=== PATIENT | female | born 1995 | race Caucasian/White ===

== ENCOUNTER 2024-08-14 16:46 | Observation (INO) | payer MEDICAID, SELFPAY ==
[2024-08-14 16:47] VITALS: BP 109/72; PULSE 83; RESP 20; TEMP 36.8
[2024-08-14 16:55] VITALS: BMI 27.1
[2024-08-14 18:54] LABS: ROM Kit Lot # 58102387
[2024-08-14 18:55] LABS: ROM Swab Mixed By: JENKK; Swb Mxed in Solvent 1 min? Yes
[2024-08-14 19:00] LABS: Rupture of Fetal Membranes Negative (Negative)
[2024-08-14] MEDS: RINGERS LACTATED 1000 ML 1,000 ML 999 ML IV (19:30)
[2024-08-14 19:36] VITALS: BP 113/77; PULSE 72
[2024-08-14 20:12] VITALS: BP 117/77; PULSE 73
[2024-08-14 20:24] VITALS: PULSE 73
[2024-08-14] MEDS: TERBUTALINE SULF INJ 1 MG/ML VIAL 0.25 MG SC (20:24)
--- NOTE | 2024-08-14 20:31 | ESPR_ITS ---
Documentation for date of: 08/14/24 OB Labor Progress Note Pelvic Exam Amniotic membrane status: Intact Contractions Monitor mode: External Contraction frequency: 8-10 Contraction intensity: Mild Status status: Category l Assessment and Plan Comments: Triage Note Srinivas is a 28yo with SIUP at 37&2wk presenting to L&D for ctx. No lof, no vaginal bleeding. Normal movement. Current : This has been uncomplicated, she has had regular OB care with Dr. Magana. Plans to have repeat with Dr. Acevedo, but has not had a pre-op visit with him yet. Previous pregnancies: history of section x2 ROS negative other than what was described above. Vitals wnl, afebrile General: well developed, well nourished, no acute distress, conversant Cardiac: normal heart rate Lungs: breathing without distress Abdomen: soft, gravid, non-tender, no rebound or guarding Extremities: no pain with palpation of calves SCE: 1.5/50/high, unchanged after time interval on L&D. However, some wetness noted after first exam so amnisure was performed which resulted negative NST: Reactive, +accels, no decels, mod bruno Tradewinds: ctx q3-5min, spaced out with 1L IVF and terbutaline Assessment: Srinivas is a 28yo with SIUP at 37&2wk with no evidence of labor based on SCE unchanged over time. Amnisure negative. Vitals wnl, benign exam. Reassuring status. Plan: -Safe for discharge home at this time -Dr. Acevedo's office contact info was placed in the discharge summary and she was instructed to walk in with him on Thursday for pre-op visit -Discussed return precautions Lisette Mathis MD
== END 2024-08-14 22:05 | disposition home or self-care (01) ==
PROVIDERS: Admitting Provider Obstetrics & Gynecology; Visit Provider Obstetrics & Gynecology
DX: O47.1 False labor at or after 37 completed weeks of gestation (principal); Z3A.37 37 weeks gestation of pregnancy
CPT/HCPCS: 59025; 59899; 84112; 96372; J3105; J7120

== ENCOUNTER 2024-08-16 08:36 | Outpatient (AMB) | payer MEDICAID, SELFPAY ==
[2024-08-16 08:58] VITALS: BP 124/84; PULSE 92; RESP 17; TEMP 36.4; O2SAT 94; BMI 27.3
--- NOTE | 2024-08-16 08:58 | AMB.OBINITIA ---
Vital Signs 08/16/24 08:58 Height 1.63 m Height Method Measured Weight 72.631 kg Weight Measurement Method Standing Scale BMI 27.3 BP 124/84 Blood Pressure Source Automatic Cuff Blood Pressure Location Right Upper Arm Position Sitting Respiration 17 Pulse 92 Pulse Source Monitor Temp 97.6 F Temp Source Temporal Artery Scan Pulse Oximetry (%) 94 L Oxygen Delivery Method Room Air Allergies/Home Meds Allergies & Medications Allergies No Known Allergies Allergy (Verified 08/23/24 11:03) Medication Reconciliation ferrous sulfate 325 mg (65 mg iron) tablet 325 mg PO QDAY 08/14/24 [History Confirmed 08/23/24] Intake Visit Data Collection New Patient or Established: Established Patient (seen at [facility] within 3 years) Reason for Visit:: OBI Seen by Clinical Staff ONLY (RN/MA): No Big Data Admin Required: No Do You Feel Safe at Home: Yes Authorities Contacted: N/A PCP or OBGYN visit in last 3 months: Yes Date of Last PCP or OBGYN visit: 08/14/24 Hx Now: Yes Are you currently on any form of Control: No Pain Present Currently: No Pain Scale Used: Headley-Rea/Numerical Smoking Status Smoking Status: Never smoker Questionnaires Covid-19 Vaccine Questionnaire Has patient been vacinated for Covid-19 Have you been vacinated for Covid-19: Yes PHQ-9 PHQ-2 Over the last 2 weeks, how often have you been bothered by any of the following problems? 1. Little interest or pleasure in doing things: not at all 2. Feeling down, depressed, or hopeless: not at all Total score: 0 Social History Living Situation History Marital Status: Lives With: Spouse Housing: House Tobacco History Smoking Status: Never smoker Alcohol History Alcohol Intake: Never Domestic Abuse History Do You Feel Safe at Home: Yes History of Present Illness HPI Narrative The patient, a 28-year-old at 34 weeks and 4 days gestation, is transferring care from Dr. Magana. She has a history of two previous C-sections, including one delivery at 34 weeks in 2023 and a full-term delivery in 2018. Srinivas reports no current complaints or symptoms, though she mentions feeling a little mad and hot during the visit. She is a former smoker who quit upon learning of her . She denies any other significant medical or genetic history. Her first was performed at approximately 38 weeks due to distress, with the baby having two true knots in the umbilical cord and cord wrapped around the neck twice. Her second was an emergency procedure at 34 weeks when she presented with what she thought was dehydration but was found to be in active labor. The patient's due date has been adjusted based on ultrasound findings. Her current estimated due date is September 23, 2024, with a planned scheduled for September 16, 2024 at 39 weeks. Srinivas reports no history of high blood pressure or diabetes in her previous pregnancies. She mentions potential misinformation regarding fasting for her glucose tolerance test, as she had eaten at [facility] before the test, which may have affected her result of 145. The patient is taking vitamins. She is non-immune to Rubella, and her Varicella immunity status is unknown. OB Initial Visit OB Flowsheet OB Flowsheet Initial Weight: Not Recorded Date <del>?</del> EGA Weight BP Alb Glu CTX Pres Fundal ht FHR Mov Dilation Station Effacement Hx Notes Visit Note 08/23/24 <del>?</del> 35w 4d 73.482 kg 117/77 occasional cephalic 35 136 active No CTX/LOF/VB, reports good FM. Seen last Thursday for CTX, 1cm dilated, ROM not confirmed. Doing well today. FHR 136. GBS swab done. Weekly visits ongoing. C/S scheduled 09/16 at 12:30 PM; check-in 10 AM. Return if CTX or LOF. Menstrual History Menstrual reliability: definite Flow: normal Menstrual regularity: regular Monthly: Yes Age at menarche: 14 On control pills at conception: No OB History : 4 Para: 3 Hx # Pregnancies: 1 Hx Total # of Abortions (Spontaneous & Elective): 1 # of Living Children: 2 Delivery History 1st : Child's name: SEBASTIÁN BARNHART date: 02/10/18 sex: male Delivery type: weight (lbs): 3175.147 g History of depression before or after : No 2nd : Child's name: BELKYS YOU date: 05/01/23 sex: female Gestational age at delivery (weeks): 34 Delivery type: weight (lbs): 1814.369 g History of depression before or after : No Infection History & Risk Evaluation History of STDs: none HIV risk evaluation: low risk Patient or partner has history of Genital Herpes: No Genetic Screening & History Genetic Screening/Teratology Counseling - Includes patient, baby's father, or anyone in either family with: 1. Patient's age 35 years or older as of estimated date of delivery: No 2. Thalassemia (Korean, Guatemalan, Mediterranean, or Background); MCV less than 80: No 3. Neural Tube Defect (Meningomyelocele, Spina Bifida, or Anencephaly): No 4. Congenital Heart Defect: No 5. Down Syndrome: No 6. Brandin-Sachs (Ashkenazi Druze, Cajun, [place]ic [place]): No 7. Raul Disease (Ashkenazi Druze): No 8. Familial Dysautonomia (Ashkenazi Druze): No 9. Sickle Cell Disease or Trait (): No 10. Hemophilia or other blood disorders: No 11. Muscular Dystrophy: No 12. Cystic Fibrosis: No 13. Laura's Chorea: No 14. Mental Retardation/Autism: Yes 15. Other inherited genetic or chromosomal disorder: No 16. Maternal Metabolic Disorder (EG,TYPE 1 Diabetes, PKU): No 17. Patient or baby's father had a child with defects not listed above: No 19. Medications (including supplements, vitamins, herbs or otc drugs)/illicit/recreational drugs/alcohol since last menstrual period: No 20. Any other: No Infection History 1. Live with someone with TB or exposed to TB: No 2. Rash or viral illness since last menstrual period: No Other (see comments) Source: [employer] Exam General General Appearance: alert, in no apparent distress and healthy appearing Head Head exam: atraumatic Neck Neck exam: Present normal inspection and trachea midline Chest Chest inspection: Present normal inspection and symmetric chest wall rise External exam: Present normal external exam; Absent tenderness Neuro Neurological exam: Present oriented X3 Psych Psychiatric exam: Present normal affect and normal mood Office Procedures OB Clinic LOC & Office Proc's Nursing/Assessment Patient Status: Established Patient OB Clinic Nursing Assessment: Medication Reconciliation, Update PMH in EMR and Vital Signs OB Clinic Coordination of Care: Education Complex Pt/Fam, Consent,records obtained, informed consent, 4+ Authorizations needed, Lab and Imaging orders and Staff clarify orders Special Needs: Heart tones Established Patient Charge Established Patient Point Assignment: 135 Established Patient Point Charge: EP Level 3 (80-115) Assessment & Plan Diagnosis / Problem List (1) Supervision of high risk , unspecified, third trimester: Status: Acute Plan Diagnostic Test Results and Labs: - Blood group: A positive - RPR: Non-reactive - HIV: Negative - Hepatitis B: Negative - Rubella: Non-immune - Urinalysis: Proteins present - Gonorrhea: Negative - Chlamydia: Negative - AFP: Negative - 1-hour glucose tolerance test: 145 mg/dL - Hemoglobin A1c: 4.8% - 3rd trimester RPR: Negative - Ultrasound (05/17/2024): - Estimated due date: 09/23/2024 - Gestational age: 21 weeks and 4 days , at 34 weeks 4 days: - Patient is 28-year-old at 34 weeks 4 days gestation based on ultrasound dating. - LMP was 11/27/2023, initial HAZEL 09/02/2024. Ultrasound on 05/17/2024 provided HAZEL of 09/23/2024. - History of two previous C-sections, including one delivery at 34 weeks. - Current uncomplicated with normal labs. - Schedule repeat for 09/16/2024 at 12:30 PM (39 weeks gestation). - Fax patient records to the hospital. - Follow up appointment in 1 week. - Pending Group B Streptococcus (GBS) screening. History of delivery: - Patient has history of delivery at 34 weeks gestation in 2023. - Monitor closely for signs and symptoms of labor. - Educate patient on signs and symptoms of labor. Tobacco use, former: - Patient quit smoking upon learning of current . - Reinforce importance of continued smoking cessation. - Provide support and resources if needed to maintain abstinence.
== END 2024-08-16 09:41 | disposition home or self-care (01) ==
LOC: HODSOBC 08:36
PROVIDERS: Supervising Provider Obstetrics & Gynecology; Visit Provider Obstetrics & Gynecology
DX: O09.213 Supervision of pregnancy with history of pre-term labor, third trimester (principal); O09.293 Supervision of pregnancy with other poor reproductive or obstetric history, third trimester; O34.219 Maternal care for unspecified type scar from previous cesarean delivery; Z3A.34 34 weeks gestation of pregnancy; Z87.891 Personal history of nicotine dependence
CPT/HCPCS: 99213; G0463

== ENCOUNTER 2024-08-17 15:22 | Observation (INO) | payer MEDICAID, SELFPAY ==
[2024-08-17] VITALS (16 sets, daily range): BP systolic 123; BP diastolic 72; PULSE 99–129; RESP 20–97; TEMP 37.2; O2SAT 94–99; BMI 27.0
[2024-08-17 16:21] LABS: ROM Kit Lot # 578010271; ROM Swab Mixed By: CL; Swb Mxed in Solvent 1 min? Yes
[2024-08-17 16:22] LABS: Rupture of Fetal Membranes Negative (Negative)
== END 2024-08-17 17:05 | disposition home or self-care (01) ==
PROVIDERS: Admitting Provider Obstetrics & Gynecology; Visit Provider Obstetrics & Gynecology
DX: Z34.83 Encounter for supervision of other normal pregnancy, third trimester (principal); Z3A.34 34 weeks gestation of pregnancy
CPT/HCPCS: 59025; 59899; 84112

== ENCOUNTER 2024-08-23 10:40 | Outpatient (AMB) | payer MEDICAID, SELFPAY ==
[2024-08-23 11:02] VITALS: BP 117/77; PULSE 91; RESP 17; TEMP 36.5; O2SAT 96; BMI 27.6
--- NOTE | 2024-08-23 11:02 | OBCLNT_ITS ---
Vital Signs 08/23/24 11:02 Height 1.63 m Height Method Stated Weight 73.482 kg Weight Measurement Method Standing Scale BMI 27.6 BP 117/77 Blood Pressure Source Automatic Cuff Blood Pressure Location Right Upper Arm Position Sitting Respiration 17 Pulse 91 Pulse Source Monitor Temp 97.7 F Temp Source Temporal Artery Scan Pulse Oximetry (%) 96 Oxygen Delivery Method Room Air Allergies/Home Meds Allergies & Medications Allergies No Known Allergies Allergy (Verified 08/23/24 11:03) Medication Reconciliation ferrous sulfate 325 mg (65 mg iron) tablet 325 mg PO QDAY 08/14/24 [History C onfirmed 08/23/24] Intake Visit Data Collection New Patient or Established: Established Patient (seen at [facility] within 3 years) Reason for Visit:: OBC Seen by Clinical Staff ONLY (RN/MA): No Assembler Flexible Leads Required: No Do You Feel Safe at Home: Yes Authorities Contacted: N/A PCP or OBGYN visit in last 3 months: Yes Date of Last PCP or OBGYN visit: 08/17/24 Hx Now: Yes Are you currently on any form of Control: No Pain Present Currently: No Pain Scale Used: Headley-Rea/Numerical Pain scale:: 0 Smoking Status Smoking Status: Never smoker Questionnaires Covid-19 Vaccine Questionnaire Has patient been vacinated for Covid-19 Have you been vacinated for Covid-19: No PHQ-9 PHQ-2 Over the last 2 weeks, how often have you been bothered by any of the following problems? 1. Little interest or pleasure in doing things: not at all 2. Feeling down, depressed, or hopeless: not at all Total score: 0 PHQ-9 3. Trouble falling or staying asleep, or sleeping too much: Not at all 4. Feeling tired or having little energy: Not at all 5. Poor appetite or overeating: Not at all 6. Feeling bad about yourself - or that you are a failure or have let yourself or your family down: Not at all 7. Trouble concentrating on things, such as reading the newspaper or watching television: Not at all 8. Moving or speaking so slowly that other people could have noticed? - Or the opposite - being so fidgety or restless that you have been moving around a lot more than usual: not at all 9. Thoughts that you would be better off or of hurting yourself in some way: Not at all Total score: 0 If you checked off any problems, how difficult have these problems made it for you to do your work, take care of things at home, or get along with other people?: not difficult at all Source: Developed by Drs. Franklyn Rondon, Amada Maxwell, Lj Lozoya and colleagues, with an educational mode from [employer]. Depression screen completed yes Social History Living Situation History Marital Status: Lives With: Spouse Housing: House Tobacco History Smoking Status: Never smoker Second Hand Smoke Exposure: No Alcohol History Alcohol Intake: Never Domestic Abuse History Do You Feel Safe at Home: Yes History of Present Illness HPI Narrative Patient reports experiencing contractions last Thursday and was found to be 1 centimeter dilated when evaluated. She initially thought her water had broken, but this was not confirmed. Currently, she denies any ongoing contractions or other issues, stating everything's going good. She is a 28-year-old 4 para 3 woman at 35 weeks and 4 days gestation. Her appears to be progressing normally, with no reported complications or concerns at this time. She is adhering to her care schedule, attending regular appointments as recommended. She has a repeat scheduled for September 16, 2024 at 12:30 PM. Patient's obstetric history includes a previous (date not specified). Care OB Visit Log OB Flowsheet Initial Weight: Not Recorded Date -?-?-?-?-?-?-?-?-?-?-?-?- EGA Weight BP Alb Glu CTX Pres Fundal ht FHR Mov Dilation Station Effacement Hx Notes Visit Note 08/23/24 -?-?-?-?-?-?-?-?-?-?-?-?- 35w 4d 73.482 kg 117/77 occasional cephalic 35 136 active No CTX/LOF/VB, reports good FM. Seen last Thursday for CTX, 1cm dilated, ROM not confirmed. Doing well today. FHR 136. GBS swab d one. Weekly visits ongoing. C/S scheduled 09/16 at 12:30 PM; check-in 10 AM. Return if CTX or LOF. HAZEL Calculator Estimated Delivery Date Method Current WG Current Estimate 09/23/24 Ultrasound #1 35w 4d Other Estimates 09/02/24 LMP (Certain) 38w 4d Exam General General Appearance: alert, in no apparent distress and healthy appearing Head Head exam: atraumatic Neck Neck exam: Present normal inspection and trachea midline Chest Chest inspection: Present normal inspection and symmetric chest wall rise External exam: Present normal external exam; Absent tenderness Neuro Neurological exam: Present oriented X3 Psych Psychiatric exam: Present normal affect and normal mood Office Procedures OB Clinic LOC & Office Proc's Nursing/Assessment Patient Status: Established Patient OB Clinic Nursing Assessment: Medication Reconciliation, Update PMH in EMR and Vital Signs OB Clinic Coordination of Care: Complex Care and Chronic Disease 1-5, Consent,records obtained, informed consent, Education Simp Pt/Fam, Lab and Imaging orders and Staff clarify orders Special Needs: Heart tones Miscellaneous Interventions: Culture Specimen Collection Established Patient Charge Established Patient Point Assignment: 145 Established Patient Point Charge: EP Level 4 (120-155) Assessment & Plan Diagnosis / Problem List (1) Supervision of high risk , unspecified, third trimester: Status: Acute (2) Maternal care for low transverse scar from previous delivery: Status: Acute Plan , 35 weeks 4 days gestation Plan: - Perform Group B Streptococcus (GBS) screening swab. - Continue weekly visits. - Scheduled repeat section on 09/16/2024 at 12:30 PM. - Patient to check in at 10:00 AM. - Monitor for signs of labor (contractions, leakage of fluid). - Return to hospital if experiencing contractions or fluid leakage.
== END 2024-08-23 11:54 | disposition home or self-care (01) ==
LOC: HODSOBC 10:40
PROVIDERS: PCP Obstetrics & Gynecology; Referring Provider Obstetrics & Gynecology; Supervising Provider Obstetrics & Gynecology; Visit Provider Obstetrics & Gynecology
DX: O09.293 Supervision of pregnancy with other poor reproductive or obstetric history, third trimester (principal); O34.211 Maternal care for low transverse scar from previous cesarean delivery; Z3A.35 35 weeks gestation of pregnancy; Z36.85 Encounter for antenatal screening for Streptococcus B
CPT/HCPCS: 99214; G0463